=== PATIENT | female | born 1930 | race Caucasian/White ===

== ENCOUNTER 2017-11-30 10:21 | Observation (INO) | payer MEDICARE, BC ==
[2017-11-30] MEDS ORDERED: Ondansetron 4 MG Tab.DIS PO PRN (14:20)
[2017-11-30] MEDS ORDERED: Sodium Chloride 0.9% 10 ML Syringe FLUSH PRN (14:20)
[2017-11-30] MEDS ORDERED: ALPRAZolam 0.25 MG Tab PO PRN (14:23)
[2017-11-30] MEDS ORDERED: Furosemide 40 MG/4 ML VIAL IVPUSH ONE (14:24)
[2017-11-30 14:58] LABS: CHLORIDE,CL 103 mEq/L (98-106); SODIUM,NA 142 mEq/L (136-145)
[2017-11-30] MEDS: Enoxaparin 30 MG/0.3 ML Syringe SUBCUT SCH (15:19)
[2017-11-30] MEDS: BISMUTH SUBSALICYLATE 262 MG PO SCH (18:00)
[2017-11-30] MEDS: **PTOM** Mirtazapine 15 MG Tab PO SCH (19:51)
[2017-11-30] MEDS: Acetaminophen 325 MG Tab PO SCH (19:54)
[2017-11-30] MEDS ORDERED: ALPRAZOLAM 0.25 MG PO SCH (20:00)
[2017-12-01] MEDS: MIRABEGRON 25 MG PO SCH (08:17)
[2017-12-01] MEDS: BISMUTH SUBSALICYLATE 262 MG PO SCH ×3 (08:17→17:33)
[2017-12-01] MEDS: **PTOM** Aspirin 81 MG Tab.EC PO SCH (08:17)
[2017-12-01] MEDS: Acetaminophen 325 MG Tab PO SCH ×2 (08:24→19:38)
[2017-12-01] MEDS ORDERED: LORazepam 2 MG/ML Syringe IVPUSH PRN (09:16)
[2017-12-01] MEDS ORDERED: Loperamide 2 MG Cap PO PRN (09:50)
[2017-12-01] MEDS: ALPRAZolam 0.25 MG Tab PO SCH ×3 (09:57→19:39)
[2017-12-01] MEDS: Enoxaparin 30 MG/0.3 ML Syringe SUBCUT SCH (11:50)
--- NOTE | 2017-12-01 13:42 | PCM.PN ---
- General Info Date of Service: 12/01/17 Admission Dx/Problem (Free Text): Shortness of Breath Functional Status: Reports: Pain Controlled, Tolerating Diet, Urinating. Denies : Ambulating - Review of Systems General: Reports: Weakness, Fatigue, Malaise. Denies: Fever HEENT: Reports: No Symptoms Pulmonary: Reports: Shortness of Breath. Denies: Cough, Wheezing Cardiovascular: Reports: Edema. Denies: Chest Pain, Lightheadedness Gastrointestinal: Denies: Abdominal Pain, Nausea, Vomiting Genitourinary: Reports: No Symptoms Musculoskeletal: Reports: No Symptoms Skin: Reports: No Symptoms Neurological: Reports: Confusion (daughter expresses that she is confused at times), Weakness - Patient Data Vitals - Most Recent: Last Vital Signs Temp 98.7 F 12/01/17 12:00 Pulse 74 12/01/17 12:00 Resp 20 12/01/17 12:00 BP 99/53 L 12/01/17 12:00 Pulse Ox 90 L 12/01/17 12:00 Weight - Most Recent: 111 lb 1.6 oz I&O - Last 24 Hours: Intake & Output 11/30/17 12/01/17 12/01/17 22:59 06:59 14:59 Intake Total 400 200 Output Total 925 900 Balance -525 -700 Lab Results Last 24 Hours: Laboratory Results - last 24 hr 11/30/17 11/30/17 11/30/17 Range/Units 14:20 14:34 14:34 WBC 4.2 L (5.0-10.0) 10^3/uL RBC 4.34 (4.00-5.50) 10^6/uL Hgb 13.8 (12.0-16.0) g/dL Hct 42.2 (37.0-47.0) % MCV 97.2 H (82.0-94.0) fL MCH 31.8 (27.0-32.0) pg MCHC 32.7 L (33.0-38.0) g/dL RDW Coeff of Tito 12.6 (11.0-15.0) % Plt Count 169 (150-400) 10^3/uL Neut % (Auto) 49.8 (35-85) % Lymph % (Auto) 34.5 (10-55) % [place] % (Auto) 10.7 (0-16) % Eos % (Auto) 4.5 (0-5) % Baso % (Auto) 0.5 (0-3) % Neut # (Auto) 2.09 (1.80-7.00) 10^3/uL Lymph # (Auto) 1.45 (1.00-4.80) 10^3/uL [place] # (Auto) 0.45 (0.00-0.80) 10^3/uL Eos # (Auto) 0.19 (0.00-0.45) 10^3/uL Baso # (Auto) 0.02 10^3/uL D-Dimer, Quantitative (0.00-0.50) Sodium 142 (136-145) mEq/L Potassium 3.7 (3.5-5.0) mEq/L Chloride 103 (98-106) mEq/L Carbon Dioxide 35 H (21-32) mmol/L BUN 20 H (7-18) mg/dL Creatinine 0.8 (0.6-1.0) mg/dL Est Cr Clr Drug Dosing 35.97 mL/min Estimated GFR (MDRD) > 60 (>=60) mL/min Glucose 121 H D (75-99) mg/dL Calcium 8.7 (8.4-10.1) mg/dL Total Bilirubin 0.4 (0.0-1.0) mg/dL AST 28 (15-37) U/L ALT 28 (12-78) U/L Alkaline Phosphatase 68 (46-116) U/L Troponin I < 0.017 (0.00-0.06) ng/mL C-Reactive Protein < 0.2 L (0.2-0.8) mg/dL NT-Pro-B Natriuret Pep 695 (0-1000) pg/mL Total Protein 6.2 L (6.4-8.2) g/dL Albumin 3.1 L (3.4-5.0) g/dL Urine Color Yellow (YELLOW) Urine Appearance Clear (CLEAR) Urine pH 7.5 (4.5-8.0) Ur Specific [place] 1.015 (1.003-1.020) Urine Protein Negative (NEGATIVE) mg/dL Urine Glucose (UA) Negative (NEGATIVE) mg/dL Urine Ketones Negative (NEGATIVE) mg/dL Urine Occult Blood Negative (NEGATIVE) Urine Nitrite Negative (NEGATIVE) Urine Bilirubin Negative (NEGATIVE) Urine Urobilinogen 0.2 (0.2-1.0) EU/dL Ur Leukocyte Esterase Trace H (NEGATIVE) Urine RBC Not seen (0-5) /HPF Urine WBC Not seen (0-5) /HPF 11/30/17 Range/Units 14:34 WBC (5.0-10.0) 10^3/uL RBC (4.00-5.50) 10^6/uL Hgb (12.0-16.0) g/dL Hct (37.0-47.0) % MCV (82.0-94.0) fL MCH (27.0-32.0) pg MCHC (33.0-38.0) g/dL RDW Coeff of Tito (11.0-15.0) % Plt Count (150-400) 10^3/uL Neut % (Auto) (35-85) % Lymph % (Auto) (10-55) % [place] % (Auto) (0-16) % Eos % (Auto) (0-5) % Baso % (Auto) (0-3) % Neut # (Auto) (1.80-7.00) 10^3/uL Lymph # (Auto) (1.00-4.80) 10^3/uL [place] # (Auto) (0.00-0.80) 10^3/uL Eos # (Auto) (0.00-0.45) 10^3/uL Baso # (Auto) 10^3/uL D-Dimer, Quantitative 0.48 (0.00-0.50) Sodium (136-145) mEq/L Potassium (3.5-5.0) mEq/L Chloride (98-106) mEq/L Carbon Dioxide (21-32) mmol/L BUN (7-18) mg/dL Creatinine (0.6-1.0) mg/dL Est Cr Clr Drug Dosing mL/min Estimated GFR (MDRD) (>=60) mL/min Glucose (75-99) mg/dL Calcium (8.4-10.1) mg/dL Total Bilirubin (0.0-1.0) mg/dL AST (15-37) U/L ALT (12-78) U/L Alkaline Phosphatase (46-116) U/L Troponin I (0.00-0.06) ng/mL C-Reactive Protein (0.2-0.8) mg/dL NT-Pro-B Natriuret Pep (0-1000) pg/mL Total Protein (6.4-8.2) g/dL Albumin (3.4-5.0) g/dL Urine Color (YELLOW) Urine Appearance (CLEAR) Urine pH (4.5-8.0) Ur Specific [place] (1.003-1.020) Urine Protein (NEGATIVE) mg/dL Urine Glucose (UA) (NEGATIVE) mg/dL Urine Ketones (NEGATIVE) mg/dL Urine Occult Blood (NEGATIVE) Urine Nitrite (NEGATIVE) Urine Bilirubin (NEGATIVE) Urine Urobilinogen (0.2-1.0) EU/dL Ur Leukocyte Esterase (NEGATIVE) Urine RBC (0-5) /HPF Urine WBC (0-5) /HPF Med Orders - Current: Current Medications Acetaminophen (Tylenol) 650 mg PO BID [facility] Last Admin: 12/01/17 08:24 Dose: 650 mg Alprazolam (Xanax) 0.25 mg PO TID [facility] Last Admin: 12/01/17 09:57 Dose: 0.25 mg Aspirin (Halfprin) 81 mg PO DAILY [facility] Last Admin: 12/01/17 08:17 Dose: 81 mg Bismuth Subsalicylate (Pepto Bismol) 262 mg PO TIDMEALS [facility] Last Admin: 12/01/17 11:51 Dose: 262 mg Enoxaparin Sodium (Lovenox) 30 mg SUBCUT DAILY@1200 [facility] Last Admin: 12/01/17 11:50 Dose: 30 mg Furosemide (Lasix) 40 mg PO DAILY [facility] Loperamide HCl (Imodium) 2 mg PO Q6H PRN PRN Reason: Diarrhea Last Admin: 12/01/17 09:57 Dose: 2 mg Lorazepam (Ativan) 0.5 - 1 mg IVPUSH Q6H PRN PRN Reason: Anxiety Mirtazapine (Remeron) 7.5 mg PO BEDTIME [facility] Last Admin: 11/30/17 19:51 Dose: 7.5 mg Ptom Mirabegron ([Myrbetriq] 25 Mg) 25 mg PO DAILY [facility] Last Admin: 12/01/17 08:17 Dose: 25 mg Non-Formulary Medication (Solifenacin [Vesicare]) 5 mg PO DAILY [facility] Ondansetron HCl (Zofran Odt) 4 mg PO Q4H PRN PRN Reason: nausea, able to take PO Sodium Chloride (Saline Flush) 10 ml FLUSH ASDIRECTED PRN PRN Reason: Keep Vein Open Discontinued Medications Alprazolam (Xanax) 0.25 mg PO BEDTIME PRN PRN Reason: Anxiety Alprazolam (Xanax) 0.25 mg PO BEDTIME [facility] Last Admin: 11/30/17 19:51 Dose: 0.25 mg Furosemide (Lasix) 40 mg IVPUSH ONETIME ONE Stop: 11/30/17 14:25 Last Admin: 11/30/17 15:19 Dose: 40 mg - Exam General: Alert, Oriented HEENT: Mucous Membr. Moist/Post Neck: Supple Lungs: Clear to Auscultation, Normal Respiratory Effort Cardiovascular: Regular Rate, Regular Rhythm GI/Abdominal Exam: Normal Bowel Sounds, Soft, Non-Tender Extremities: Normal Inspection, Pedal Edema (trace of edema in lower extremities ) Skin: Warm, Dry - Problem List & Annotations (1) Shortness of breath SNOMED Code(s): 323812425 Code(s): R06.02 - SHORTNESS OF BREATH Status: Acute Priority: High Current Visit: Yes - Problem List Review Problem List Initiated/Reviewed/Updated: Yes - My Orders Last 24 Hours: My Active Orders 12/01/17 09:00 ALPRAZolam [Xanax] 0.25 mg PO TID 12/01/17 09:16 LORazepam [Ativan] 0.5 - 1 mg IVPUSH Q6H PRN 12/01/17 09:50 Loperamide [Imodium] 2 mg PO Q6H PRN 12/01/17 13:30 Furosemide [Lasix] 40 mg PO DAILY 12/02/17 05:11 BASIC METABOLIC PANEL,BMP [CHEM] AM C-REACTIVE PROTEIN [CHEM] AM CBC WITH AUTO DIFF [HEME] AM - Assessment Assessment:: Shortness of Breath - Plan Plan:: Patient feeling better today. Staff has noted that she becomes more tachypneic and short of breath when gets anxious. Family has also been concerned with this. All labs done on admit by Dr. Page to rule out blood clot, CHF and infection are normal. Chest Xray unchanged. Echocardiogram is stable without concerns. She did have a 3# weight gain and edema in her legs but now after having elevated and in bed with one dose of IV Lasix, it is much improved. No evidence of heart failure per testing done. She has had oxygen sats around 93% on room air. Family conference held with patient, daughter and son by speaker phone. Related all information and testing results to them. Concerns expressed about anxiety and family agrees. Patient herself does not feel anxious but has expressed concern with all the changes over the last few months. Will trial a course of Xanax today and see how she tolerates it. Possible discharge home tomorrow if remains stable.
[2017-12-01] MEDS: Furosemide 40 MG Tab PO SCH (14:07)
[2017-12-01] MEDS: **PTOM** Mirtazapine 15 MG Tab PO SCH (19:38)
[2017-12-02 07:28] LABS: CHLORIDE,CL 106 mEq/L (98-106); SODIUM,NA 146 mEq/L (136-145)
[2017-12-02] MEDS: **PTOM** Aspirin 81 MG Tab.EC PO SCH (07:30)
[2017-12-02] MEDS: Furosemide 40 MG Tab PO SCH (07:30)
[2017-12-02] MEDS: Acetaminophen 325 MG Tab PO SCH (07:31)
[2017-12-02] MEDS: BISMUTH SUBSALICYLATE 262 MG PO SCH ×2 (07:31→11:32)
[2017-12-02] MEDS: ALPRAZolam 0.25 MG Tab PO SCH ×2 (07:31→13:27)
[2017-12-02] MEDS: MIRABEGRON 25 MG PO SCH (07:34)
[2017-12-02] MEDS: Enoxaparin 30 MG/0.3 ML Syringe SUBCUT SCH (11:32)
[2017-12-02 12:41] VITALS: BP 104/61
[2017-12-02] MEDS: SOLIFENACIN 5 MG PO SCH ×2 (13:55→13:56)
--- NOTE | 2017-12-02 21:31 | PCM.DCSUM1 ---
Discharge Summary - Hospital Course Free Text/Narrative:: Patient admitted from clinic by Dr. Haynes with shortness of breath. Family and staff had noted increased edema, weights increased. Had been having more issues with orthopnea, having to use more pillows at night to sleep. Had been having more problems with rapid breathing, shortness of breath 2 weeks ago. Had been started on Lasix daily and that had helped her breathing. Admitted with concerns for CHF. Echo had been done recently which showed normal EF and no valvular abnormalities. Diagnosis: Stroke: No Modified Rakel Scale: No Symptoms at All Modified Evans Scale Score: 0 - Discharge Data Discharge Date: 12/02/17 Discharge Disposition: Home, Self-Care 01 Condition: Good - Discharge Diagnosis/Problem(s) (1) Shortness of breath SNOMED Code(s): 081384798 ICD Code: R06.02 - SHORTNESS OF BREATH Status: Acute Priority: High - Patient Summary/Data Complications: none Hospital Course: Patient doing well. She does still complain of weakness but that has been increasing over the last 6 months per family. Was given IV Lasix x1 dose with good improvement of edema, shortness of breath. Is ambulating in halls and tolerating well. Does have complaints of knee pain which has also been a chronic concern for her. ProBNP on admit was stable, within normal range. Chest xray unremarkable. Discussed anxiety with family as possible source of shortness of breath and agree it may be a concern due to all the changes over the last 6 months. Was given a trial of scheduled Xanax over the last 24 hours and tolerated well, no increased sedation or concerns with balance other than her norm. Doing well with the walker. - Patient Instructions Diet: Usual Diet as Tolerated Activity: As Tolerated - Discharge Plan *PRESCRIPTION DRUG MONITORING PROGRAM REVIEWED*: No *COPY OF PRESCRIPTION DRUG MONITORING REPORT IN PATIENT TASHI: No Home Medications: Home Meds Aspirin [Halfprin] 81 mg PO DAILY 09/29/13 [History] Cholecalciferol (Vitamin D3) [Vitamin D3] 5,000 units PO DAILY 09/29/13 [History ] Cranberry 400 mg PO DAILY 09/29/13 [History] Acetaminophen 2 tab PO BID 09/15/17 [History] Bismuth Subsalicylate [Bismuth] 1 tab PO BID 09/15/17 [History] Furosemide 40 mg PO DAILY 09/15/17 [History] L.acidoph,Paracasei, B.lactis [Probiotic] 1 each PO DAILY 09/15/17 [History] Loperamide [Imodium AD] 4 mg PO DAILY PRN MDD 6 CAPSULES 09/15/17 [History] Mirabegron [Myrbetriq] 25 mg PO DAILY 09/15/17 [History] Mirtazapine 7.5 mg PO BEDTIME 09/15/17 [History] Lutein/Minerals/Vit A,C & E [Ocuvite] 1 tab PO DAILY 11/30/17 [History] ALPRAZolam [Alprazolam] 0.25 mg PO TID #90 12/02/17 [Rx] Referrals: Keagan Haynes MD [Primary Care Provider] - (follow up in [address] Haynes. To have cortisone injection in knee at that time) - Discharge Summary/Plan Comment DC Time >30 min.: No Discharge Summary/Plan Comment: Discharge home Continue oral Lasix daily Xanax 0.25 mg TID Follow up with Dr. Haynes in 2 weeks. - General Info Date of Service: 12/02/17 Admission Dx/Problem (Free Text: Shortness of Breath Functional Status: Reports: Pain Controlled, Tolerating Diet, Ambulating - Review of Systems General: Reports: Weakness HEENT: Reports: No Symptoms Pulmonary: Reports: Shortness of Breath. Denies: Cough Cardiovascular: Denies: Chest Pain, Edema, Lightheadedness Gastrointestinal: Denies: Abdominal Pain, Nausea, Vomiting Genitourinary: Reports: No Symptoms Musculoskeletal: Reports: Joint Pain Skin: Reports: No Symptoms - Patient Data Vitals - Most Recent: Last Vital Signs Temp 98.3 F 12/02/17 12:00 Pulse 68 12/02/17 12:00 Resp 18 12/02/17 12:00 BP 104/61 12/02/17 12:00 Pulse Ox 91 L 12/02/17 12:00 Weight - Most Recent: 112 lb 3.2 oz I&O - Last 24 hours: Intake & Output 12/02/17 12/02/17 12/02/17 06:59 14:59 22:59 Intake Total 300 Output Total 200 200 Balance 100 -200 Lab Results - Last 24 hrs: Laboratory Results - last 24 hr 12/02/17 12/02/17 Range/Units 07:00 07:00 WBC 4.0 L (5.0-10.0) 10^3/uL RBC 4.56 (4.00-5.50) 10^6/uL Hgb 14.4 (12.0-16.0) g/dL Hct 45.3 (37.0-47.0) % MCV 99.3 H (82.0-94.0) fL MCH 31.6 (27.0-32.0) pg MCHC 31.8 L (33.0-38.0) g/dL RDW Coeff of Tito 12.8 (11.0-15.0) % Plt Count 177 (150-400) 10^3/uL Neut % (Auto) 36.8 (35-85) % Lymph % (Auto) 44.3 (10-55) % [place] % (Auto) 13.4 (0-16) % Eos % (Auto) 5.0 (0-5) % Baso % (Auto) 0.5 (0-3) % Neut # (Auto) 1.46 L (1.80-7.00) 10^3/uL Lymph # (Auto) 1.76 (1.00-4.80) 10^3/uL [place] # (Auto) 0.53 (0.00-0.80) 10^3/uL Eos # (Auto) 0.20 (0.00-0.45) 10^3/uL Baso # (Auto) 0.02 10^3/uL Sodium 146 H (136-145) mEq/L Potassium 4.1 (3.5-5.0) mEq/L Chloride 106 (98-106) mEq/L Carbon Dioxide 37 H (21-32) mmol/L BUN 26 H (7-18) mg/dL Creatinine 0.9 (0.6-1.0) mg/dL Est Cr Clr Drug Dosing 31.98 mL/min Estimated GFR (MDRD) 59 L (>=60) mL/min Glucose 92 (75-99) mg/dL Calcium 8.7 (8.4-10.1) mg/dL C-Reactive Protein < 0.2 L (0.2-0.8) mg/dL Med Orders - Current: Current Medications Discontinued Medications Acetaminophen (Tylenol) 650 mg PO BID [facility] Last Admin: 12/02/17 07:31 Dose: 650 mg Alprazolam (Xanax) 0.25 mg PO BEDTIME PRN PRN Reason: Anxiety Alprazolam (Xanax) 0.25 mg PO BEDTIME [facility] Last Admin: 11/30/17 19:51 Dose: 0.25 mg Alprazolam (Xanax) 0.25 mg PO TID [facility] Last Admin: 12/02/17 13:27 Dose: 0.25 mg Aspirin (Halfprin) 81 mg PO DAILY [facility] Last Admin: 12/02/17 07:30 Dose: 81 mg Bismuth Subsalicylate (Pepto Bismol) 262 mg PO TIDMEALS [facility] Last Admin: 12/02/17 11:32 Dose: 262 mg Enoxaparin Sodium (Lovenox) 30 mg SUBCUT DAILY@1200 [facility] Last Admin: 12/02/17 11:32 Dose: 30 mg Furosemide (Lasix) 40 mg IVPUSH ONETIME ONE Stop: 11/30/17 14:25 Last Admin: 11/30/17 15:19 Dose: 40 mg Furosemide (Lasix) 40 mg PO DAILY [facility] Last Admin: 12/02/17 07:30 Dose: 40 mg Loperamide HCl (Imodium) 2 mg PO Q6H PRN PRN Reason: Diarrhea Last Admin: 12/01/17 09:57 Dose: 2 mg Lorazepam (Ativan) 0.5 - 1 mg IVPUSH Q6H PRN PRN Reason: Anxiety Mirtazapine (Remeron) 7.5 mg PO BEDTIME [facility] Last Admin: 12/01/17 19:38 Dose: 7.5 mg Ptom Mirabegron ([Myrbetriq] 25 Mg) 25 mg PO DAILY [facility] Last Admin: 12/02/17 07:34 Dose: 25 mg Non-Formulary Medication (Solifenacin [Vesicare]) 5 mg PO DAILY [facility] Last Admin: 12/02/17 13:56 Dose: Not Given Ondansetron HCl (Zofran Odt) 4 mg PO Q4H PRN PRN Reason: nausea, able to take PO Sodium Chloride (Saline Flush) 10 ml FLUSH ASDIRECTED PRN PRN Reason: Keep Vein Open - Exam General: Reports: Alert, Oriented HEENT: Reports: Mucous Membr. Moist/[place] Neck: Reports: Supple Lungs: Reports: Clear to Auscultation, Normal Respiratory Effort Cardiovascular: Reports: Regular Rate, Regular Rhythm GI/Abdominal Exam: Normal Bowel Sounds, Soft, Non-Tender Extremities: Normal Inspection, No Pedal Edema Skin: Reports: Warm, Dry Neurological: Reports: No New Focal Deficit
== END 2017-12-02 14:13 | disposition home or self-care (01) ==
LOC: UNDOADMOB 10:21 → CC.MS 10:21
PROVIDERS: ADMIT Family Medicine; ATTEND Family Medicine
DX: J44.9 Chronic obstructive pulmonary disease, unspecified (principal); M19.90 Unspecified osteoarthritis, unspecified site; F41.8 Other specified anxiety disorders; K21.9 Gastro-esophageal reflux disease without esophagitis; E78.5 Hyperlipidemia, unspecified; I10 Essential (primary) hypertension; G47.00 Insomnia, unspecified; N32.81 Overactive bladder; E55.9 Vitamin D deficiency, unspecified; Z88.5 Allergy status to narcotic agent; Z88.6 Allergy status to analgesic agent; Z88.8 Allergy status to other drugs, medicaments and biological substances; Z79.82 Long term (current) use of aspirin; Z79.899 Other long term (current) drug therapy
CPT/HCPCS: 36415; 71046; 80048; 80053; 81001; 83880; 84484; 85025; 85379; 86140; 93005; 96372; 96374; A9270-GY; G0378; J1650; J1940